=== PATIENT | female | born 1960 | race African-American/Black ===

== ENCOUNTER 2016-08-05 02:02 | Inpatient (IN) | payer BC, OTHER ==
[~2016-08-05] VITALS: Ht 170.2 cm; Wt 114.9 kg
[2016-08-05 02:45] LABS: Basophils # (auto) 0 uL; Basophils % (auto) 0.4 % (0.0-2.0); Eosinophils # (auto) 0.4 uL; Eosinophils % (auto) 3.6 % (0.0-7.0); Hematocrit 40.4 % (36.0-46.0); Hemoglobin 13.2 g/dL (12.2-16.2); Lymphocytes % (auto) 28.3 % (10.0-50.0); Mean Corpuscular Hemoglobin 28.4 pg (28.0-32.0); Mean Corpuscular Hgb Conc. 32.6 g/dL (32.0-36.0); Mean Platelet Volume 9.4 fL (7.4-10.4); Monocytes # (auto) 0.6 uL; Monocytes % (auto) 5.6 % (0.0-12.0); Neutrophils # (auto) 6.6 uL; Neutrophils % (auto) 62.1 % (37.0-80.0); Platelet Count (auto) 241 10^3/uL (140-450); Red Cell Distribution Width 14.1 % (11.6-16.0); White Blood Cell 10.7 10^3/uL (4.4-10.8)
[2016-08-05 03:06] LABS: B-Type Natriuretic Peptide 84.8 pg/mL (0-100); Temperature: 21.9 C (20.0-25.0)
[2016-08-05 03:10] LABS: Albumin 3.7 g/dL (3.4-5.0); BUN/Creatinine Ratio 10.2; Bilirubin, Total 0.5 mg/dL (0.2-1.0); Calcium 9.1 mg/dL (8.5-10.1); Magnesium 2.2 mg/dL (1.6-2.6); Potassium 4.2 mmol/L (3.5-5.1); Total Protein 7.7 g/dL (6.4-8.2)
[2016-08-05] MEDS ORDERED: IOHEXOL 350 MG/ML 100ML IJ ONE (07:52)
[2016-08-05] MEDS ORDERED: SODIUM CHLORIDE 0.9% 1,000 ML IV ONE (07:53)
[2016-08-05] MEDS ORDERED: LEVOTHYROXINE SODIUM 25 MCG TAB PO ONE (08:00)
[2016-08-05] MEDS ORDERED: LACTULOSE 20Gm/30ML SOLN PO PRN (09:15)
[2016-08-05] MEDS ORDERED: TEMAZEPAM 15 MG CAP PO PRN (09:15)
[2016-08-05] MEDS ORDERED: PROMETHAZINE HCL 25 MG/ML 1ML IV PRN (09:15)
[2016-08-05] MEDS ORDERED: NITROGLYCERIN 0.4 MG SL TAB SL PRN (09:15)
[2016-08-05] MEDS ORDERED: DEXTROSE (50%) 50ML SYRG IV PRN (09:15)
[2016-08-05] MEDS ORDERED: MORPHINE SULF INJ 2 MG/ML SYRINGE 1ML IV PRN ×2 (09:15)
[2016-08-05] MEDS ORDERED: ACETAMINOPHEN 500 MG TAB PO PRN (09:15)
[2016-08-05] MEDS ORDERED: FUROSEMIDE 40 MG/4 ML VIAL IV SCH (10:00)
[2016-08-05] MEDS ORDERED: CARVEDILOL 3.125 MG TAB PO SCH (10:00)
[2016-08-05] MEDS ORDERED: FURO20TA3 PO (11:35)
[2016-08-05] MEDS ORDERED: NAPR-604 PO (11:35)
[2016-08-05] MEDS ORDERED: CYCL7.5T15 PO (11:35)
[2016-08-05] MEDS ORDERED: GABA-339 PO (11:35)
[2016-08-05] MEDS ORDERED: TRAZ100T2 PO (11:35)
[2016-08-05] MEDS ORDERED: RANI1TAB6 PO (11:35)
[2016-08-05] MEDS ORDERED: TRAM150C6 PO (11:35)
[2016-08-05] MEDS ORDERED: ALBUAER3 IN (11:35)
[2016-08-05] MEDS ORDERED: [UNRECOGNIZED DRUG - CODE] (11:36)
[2016-08-05] MEDS ORDERED: ATOR20TA50 PO (11:36)
[2016-08-05] MEDS ORDERED: CARV3.1213 OR (11:36)
[2016-08-05] MEDS ORDERED: ASPI-231 PO (11:36)
[2016-08-05] MEDS ORDERED: LISI-646 PO (11:36)
[2016-08-05] MEDS ORDERED: OMEG100078 PO (11:36)
[2016-08-05] MEDS ORDERED: SODITAB OR (11:36)
[2016-08-05] MEDS ORDERED: GLUC1CAP12 PO (11:36)
[2016-08-05] MEDS: ASPirin 81 mg TAB PO SCH (11:42)
[2016-08-05] MEDS: ENOXAPARIN SOD 40 MG/0.4 ML SYRINGE SC SCH (11:43)
[2016-08-05] MEDS: POTASSIUM CHL 20 Meq TABLET PO SCH (11:43)
[2016-08-05] MEDS: ENALAPRIL MALEATE 2.5 MG TAB PO SCH (11:43)
[2016-08-05] MEDS: NITROGLYCERIN 0.2MG/HR TOPICAL PATCH TD SCH (11:44)
[2016-08-05] MEDS: InsuLIN REG 1unit/0.01ml Soln (100units/ml) SC SCH ×3 (12:07→21:56)
[2016-08-05] MEDS: ACCU-CHEK COMFORT CURVE STRIP VI SCH ×3 (12:07→21:56)
[2016-08-05 13:00] VITALS: BP 149/88
[2016-08-05] MEDS: HYDROcodone-ACET 5/325MG TAB PO PRN (14:09)
[2016-08-05 17:00] VITALS: BP 129/77
[2016-08-05 21:48] VITALS: BP 105/61
[2016-08-05] MEDS: CARVEDILOL 3.125 MG TAB PO SCH (21:55)
[2016-08-06 04:55] VITALS: BP 111/51
[2016-08-06 06:27] LABS: Cholesterol 156 mg/dL (<200); HDL Cholesterol 39 mg/dL (40-59); LDL Cholesterol 118 mg/dL (<100); Triglycerides 128 mg/dL (<150)
[2016-08-06 06:33] LABS: B-Type Natriuretic Peptide 61.23 pg/mL (0-100)
[2016-08-06 06:41] LABS: Temperature: 21.2 C (20.0-25.0)
[2016-08-06] MEDS: ACCU-CHEK COMFORT CURVE STRIP VI SCH ×2 (06:47→11:30)
[2016-08-06] MEDS: InsuLIN REG 1unit/0.01ml Soln (100units/ml) SC SCH ×2 (06:47→11:30)
[2016-08-06 09:00] VITALS: BP 125/69
[2016-08-06] MEDS: ENOXAPARIN SOD 40 MG/0.4 ML SYRINGE SC SCH (09:56)
[2016-08-06] MEDS: POTASSIUM CHL 20 Meq TABLET PO SCH (09:56)
[2016-08-06] MEDS: ASPirin 81 mg TAB PO SCH (09:56)
[2016-08-06] MEDS: CARVEDILOL 3.125 MG TAB PO SCH ×2 (09:57→21:01)
[2016-08-06] MEDS: ENALAPRIL MALEATE 2.5 MG TAB PO SCH (09:57)
[2016-08-06] MEDS: FUROSEMIDE 20 MG TAB PO SCH (09:58)
[2016-08-06] MEDS: NITROGLYCERIN 0.2MG/HR TOPICAL PATCH TD SCH (10:00)
[2016-08-06 13:00] VITALS: BP 134/76
[2016-08-06] MEDS: HYDROcodone-ACET 5/325MG TAB PO PRN ×2 (13:33→21:00)
[2016-08-06 17:10] VITALS: BP 121/72
[2016-08-06 21:33] VITALS: BP 101/57
[2016-08-06] MEDS: LORazepam 0.5 MG TAB PO PRN (23:37)
[2016-08-07 05:00] VITALS: BP 106/57
[2016-08-07 08:51] VITALS: BP 123/71
[2016-08-07] MEDS: POTASSIUM CHL 20 Meq TABLET PO SCH (09:47)
[2016-08-07] MEDS: ASPirin 81 mg TAB PO SCH (09:47)
[2016-08-07] MEDS: ENOXAPARIN SOD 40 MG/0.4 ML SYRINGE SC SCH (09:47)
[2016-08-07] MEDS: ENALAPRIL MALEATE 2.5 MG TAB PO SCH (09:48)
[2016-08-07] MEDS: FUROSEMIDE 20 MG TAB PO SCH (09:48)
[2016-08-07] MEDS: NITROGLYCERIN 0.2MG/HR TOPICAL PATCH TD SCH (09:49)
[2016-08-07] MEDS: CARVEDILOL 3.125 MG TAB PO SCH (09:49)
[2016-08-07] MEDS: LORazepam 0.5 MG TAB PO PRN (10:08)
[2016-08-07 11:01] VITALS: BP 123/71
== END 2016-08-07 11:15 | disposition home or self-care (01) | DRG 316 ==
LOC: ER 02:06 → TELE 02:07 → TELE-E-ADS 10:26 → TELE-EAST 10:48
PROVIDERS: ADMIT Internal Medicine; ATTEND Internal Medicine
DX: I42.9 Cardiomyopathy, unspecified (principal); G89.29 Other chronic pain; E11.9 Type 2 diabetes mellitus without complications; E03.9 Hypothyroidism, unspecified; E66.01 Morbid (severe) obesity due to excess calories; I50.9 Heart failure, unspecified; I11.0 Hypertensive heart disease with heart failure; J30.2 Other seasonal allergic rhinitis; Z82.49 Family history of ischemic heart disease and other diseases of the circulatory system; Z83.3 Family history of diabetes mellitus; Z87.891 Personal history of nicotine dependence; Z88.1 Allergy status to other antibiotic agents
CPT/HCPCS: 36415; 71020; 71275; 80053; 80061; 82550; 82962; 83036; 83735; 83880; 84439; 84443; 84481; 84484; 85025; 85379; 93005; 93306; 93970; 96360